=== PATIENT | female | born 1970 | race Caucasian/White ===

== ENCOUNTER → 2018-12-30 07:27 | Outpatient (CLI) | payer BC | END | disposition home or self-care (01) | LOC: D.NM 07:27 | PROVIDERS: ATTEND Family Medicine | DX: R10.11 Right upper quadrant pain (principal) ==

== ENCOUNTER 2019-11-05 17:13 | Emergency (ER) | payer OTHER ==
[~2019-11-05] VITALS: Ht 172.7 cm; Wt 93.2 kg
[2019-11-05 17:26] VITALS: Ht 172.7 cm; Wt 93.2 kg
[2019-11-05] MEDS ORDERED: PRINIVIL10 MG PO (17:30)
[2019-11-05] MEDS ORDERED: ESTRACE 0.5 MG0.5 MG PO (17:30)
[2019-11-05] MEDS ORDERED: ZOLOFT25 MG PO (17:30)
[2019-11-05] MEDS ORDERED: MEDROL DOSE PACK4 MG PO (18:34)
[2019-11-05] MEDS ORDERED: BACLOFEN10 MG PO (18:34)
[2019-11-05] MEDS ORDERED: VOLTAREN75 MG PO (18:34)
[2019-11-05 19:49] VITALS: BP 148/95
== END 2019-11-05 19:49 | disposition home or self-care (01) ==
LOC: D.ER 17:13
DX: S39.012A Strain of muscle, fascia and tendon of lower back, initial encounter (principal); I10 Essential (primary) hypertension; X50.0XXA Overexertion from strenuous movement or load, initial encounter; Y93.9 Activity, unspecified; Y92.9 Unspecified place or not applicable